=== PATIENT | male | born 1970 | race Hispanic/Latino ===

== ENCOUNTER → 2018-10-07 | Outpatient (CLI) | payer MEDICARE ==
[~2018-10-07] MED LIST: DULO30CA51 PO; GABA600T10 PO; HYDR-4060 PO; LISI1TAB9 PO; METF-446 PO; METH750T3 PO; METO10TA3 PO; ZOLP10TA6 PO
--- NOTE | 2018-10-07 13:30 | NUR ---
MBSS COMPLETE. -S/S OF ASPIRATION. RECOMMEND REGULAR, THIN LIQUID DIET; PILLS WHOLE WITH LIQUIDS. PATIENT INFORMATION: Pt IS A 48 MALE REFERRED FOR AN MBSS SECONDARY TO C/O DIFFICULTY SWALLOWING IN THE AM. Pt AAOX3 AND SERVED THE PRIMARY INFORMANT FOR MEDICAL AND SOCIAL HISTORY. Pt DESCRIBES SWALLOWING DIFFICULTY OCCURRING EARLY IN THE MORNING, WHICH HE ATTRIBUTES TO GASTRIC ISSUES. Pt WAS RECENTLY DIAGNOSED WITH GASTRIC ULCERS AND POLYPS. Pt HAS A PAST MEDICAL HISTORY SIGNIFICANT FOR PTSD, TORN ROTATOR CUFF, HYPERTENSION, GERD, AND LOWER BACK SURGERY (L-SPINE). MBSS INTERPRETATION: SWALLOW FUNCTION AND EFFICIENCY WITHIN FUNCTIONAL LIMITS. ORAL MOTOR STRENGTH, COORDINATION, AND ROM WITHIN FUNCTIONAL LIMITS. LARYNGEAL ELEVATION/EXCURSION STRONG WITH TIMELY PHARYNGEAL RESPONSE. NO OVERT SIGNS OR SYMPTOMS OF ASPIRATION PRESENT DURING MBSS. TRIALS: 1. TSP PUREED: GOOD 2. TSP PUDDING: GOOD 3. TSP MIXED: GOOD 4. COOKIE: GOOD 5. TSP THIN LIQUIDS: GOOD 6. CUP SIP THIN LIQUIDS: GOOD RECOMMENDATIONS: 1. REGULAR TEXTURE, THIN LIQUID DIET; PILLS WHOLE WITH LIQUIDS. 2. COMPENSATORY STRATEGIES (PROPHYLAXIS): *SEATED AT 90 DEGREE ANGLE *REMAIN UPRIGHT 30 MINUTES AFTER MEAL TIMES G-CODES SWALLOWING: [id number] Addendum: 10/07/18 at 1337 by FARHAT [facility] Amended: Links added.
== END | disposition home or self-care (01) ==
LOC: RAH 10:15
PROVIDERS: ATTEND Internal Medicine Gastroenterology
DX: R13.12 Dysphagia, oropharyngeal phase (principal); R63.3 Feeding difficulties
CPT/HCPCS: 74230; 92611

== ENCOUNTER → 2018-11-05 | Outpatient (CLI) | payer MEDICARE | END | disposition home or self-care (01) | LOC: RAH 10:28 | PROVIDERS: ATTEND Internal Medicine Gastroenterology | DX: K30 Functional dyspepsia (principal) | CPT/HCPCS: 78264; A9541 ==

== ENCOUNTER 2019-03-03 11:00 | Observation (INO) | payer MEDICARE ==
[~2019-03-03] VITALS: Ht 180.3 cm; Wt 127.6 kg
[~2019-03-03 11:00] MED LIST changes: -DULO30CA51 PO; +DULO30CA52 PO; -GABA600T10 PO; -HYDR-4060 PO; -LISI1TAB9 PO; -METH750T3 PO; -METO10TA3 PO
[2019-03-03 16:36] VITALS: BP 120/71
[2019-03-03] MEDS ORDERED: GABA600T10 PO (17:50)
[2019-03-03] MEDS ORDERED: LACT10SO PO (17:50)
[2019-03-03] MEDS ORDERED: MIRT30TA6 PO (17:50)
[2019-03-03] MEDS ORDERED: HYDR-3421 PO (17:50)
[2019-03-03] MEDS ORDERED: LISI40TA4 PO (17:50)
[2019-03-03] MEDS ORDERED: NALO4SPR NS (17:50)
[2019-03-03] MEDS ORDERED: CARB15DR OP (17:50)
[2019-03-03] MEDS ORDERED: LEVE10006 PO (17:50)
[2019-03-03] MEDS ORDERED: ROSU10TA28 PO (17:50)
[2019-03-03] MEDS ORDERED: MELA3TAB66 PO (17:50)
[2019-03-03] MEDS ORDERED: FURO20TA4 PO (17:50)
[2019-03-03] MEDS ORDERED: ALPR1TAB7 PO (17:50)
[2019-03-03] MEDS ORDERED: SUCR1TAB2 PO (17:50)
[2019-03-03] MEDS ORDERED: GLIP10TA9 PO (17:50)
[2019-03-03] MEDS ORDERED: LIDO700A30 TP (17:50)
[2019-03-03] MEDS ORDERED: BISA5TAB12 PO (17:50)
[2019-03-03] MEDS ORDERED: HYDR25TA PO (17:50)
[2019-03-03] MEDS ORDERED: ESOM40CA54 PO (17:50)
[2019-03-03] MEDS ORDERED: TRIA15CR48 TP (17:50)
[2019-03-03] MEDS ORDERED: OXYC30TA89 PO (17:50)
[2019-03-04] VITALS (24 sets, daily range): BP systolic 100–156; BP diastolic 44–82
[2019-03-04] MEDS: CEFAZOLIN 3GM /D5W 100ML 100 ML IV SCH ×3 (06:00→21:47)
[2019-03-04] MEDS ORDERED: SODIUM CHLORIDE 0.9% 1000ML 1,000 ML IV ONE (11:27)
[2019-03-04] MEDS ORDERED: CEFAZOLIN SODIUM 1 GM VIAL ONE (11:27)
[2019-03-04] MEDS ORDERED: PROPOFOL 10 MG/ML 20ML VIAL IV ONE (13:45)
[2019-03-04] MEDS ORDERED: DEXAMETHASONE SOD PHOSPHATE 10MG/ML 1ML VIAL ONE (13:45)
[2019-03-04] MEDS ORDERED: MIDAZOLAM HCL 1 MG/ML 2ML VIAL ONE (13:45)
[2019-03-04] MEDS ORDERED: LIDOCAINE PF 2% 5ML ABBOJECT ONE ×2 (13:45→15:15)
[2019-03-04] MEDS ORDERED: ONDANSETRON HCL 4 MG/2 ML VIAL ONE (13:45)
[2019-03-04] MEDS ORDERED: FENTANYL CITRATE PF 50 MCG/1 ML 2ML VIAL ONE ×2 (13:45→14:28)
[2019-03-04] MEDS ORDERED: ROCURONIUM 10MG/1ML SYR 10 MG/ML ML ONE (13:46)
[2019-03-04] MEDS ORDERED: ROPIVACAINE 0.5% 5MG/ML 30ML IJ ONE (13:57)
[2019-03-04] MEDS ORDERED: KETOROLAC TROMETHAMINE 30MG/ML ONE (15:22)
[2019-03-04 15:58] LABS: HEMATOCRIT 35.7 % (42-54)
--- NOTE | 2019-03-04 17:55 | NUR ---
DR. KADIE VILLALOBOS, FOR MEDICAL MANAGEMENT PER DR. SCHUSTER NO ANSWER
[2019-03-04 17:58] LABS: HEMATOCRIT 34.7 % (42-54)
--- NOTE | 2019-03-04 18:11 | NUR ---
DR. ENGLE PAGED AGAIN
[2019-03-04] MEDS ORDERED: HYDROXYZINE HCL 25 MG TABLET PO PRN (18:30)
[2019-03-04] MEDS ORDERED: NON-FORMULARY MEDICATION 1 EACH (Levetiracetam 1,000 MG) PO SCH (18:30)
[2019-03-04] MEDS ORDERED: LIDOCAINE 5% TOPICAL PATCH TP PRN (18:30)
[2019-03-04] MEDS ORDERED: ARTIFICAL TEARS SOL 15 ML OP PRN (18:30)
--- NOTE | 2019-03-04 18:55 | NUR ---
THIS IS THE 4TH TIME I CALL PHARMACY THEY FAILED TO MAKE PAIN MEDICATION AVAILABLE FOR PATIENT
[2019-03-04] MEDS: OXYCODONE HCL 30 MG TABLET PO PRN ×2 (19:09→23:38)
--- NOTE | 2019-03-04 20:00 | NUR ---
'S ORDERS. PER DR. SCHUSTER PT TO GET UP TO CHAIR STARTING AT THIS TIME. PT REFUSING TO GET UP STATED "IS IN TOO MUCH PAIN", ENCOURAGED TO GET UP PER MD ORDERS AND EDUCATED OF IMPORTANCE, PT CONTINUES TO REFUSE. PT EXERCISED R.O.M WITH BLE IN BED, PERFORMED ANKLE DORSIFLEXION.
[2019-03-04] MEDS ORDERED: LEVETIRACETAM 500 MG TABLET PO SCH (21:00)
[2019-03-04] MEDS ORDERED: MELATONIN 6 MG PO PRN (21:00)
[2019-03-04] MEDS ORDERED: ATORVASTATIN CALCIUM 10 MG TABLET PO SCH (21:00)
[2019-03-04] MEDS ORDERED: ZOLPIDEM TARTRATE 5 MG TAB PO SCH (21:00)
[2019-03-04] MEDS ORDERED: MIRTAZAPINE 15 MG TABLET PO SCH (21:00)
[2019-03-04] MEDS: ALPRAZOLAM 1 MG TAB PO SCH (21:45)
[2019-03-04] MEDS: GABAPENTIN 300 MG CAPSULE PO SCH (21:45)
[2019-03-04] MEDS: GLIPIZIDE 5 MG TABLET PO SCH (21:46)
[2019-03-04] MEDS: DULOXETINE HCL 30 MG CAP PO SCH (21:46)
[2019-03-04] MEDS: LACTULOSE 20 GM/30 ML UDCUP PO SCH (21:46)
[2019-03-04] MEDS: SUCRALFATE 1 GM TABLET PO SCH (21:46)
[2019-03-04] MEDS: METFORMIN HCL 500 MG TABLET PO SCH (21:47)
[2019-03-04] MEDS ORDERED: CEFAZOLIN SODIUM 1 GM VIAL IVP SCH (22:00)
[2019-03-04] MEDS ORDERED: LEVETIRACETAM 500 MG TABLET PO ONE (23:34)
--- NOTE | 2019-03-04 23:39 | NUR ---
MEDICATION ADMINISTRATION. PER PHARMACY OK TO OVERRIDE KEPPRA 500MG X2 FOR ADMINISTRATION OF KEPPRA 1GM, DUE TO ANH ON PHARMACY SIDE FOR VERIFYING THAT MEDICATION. KEPPRA 1GM ADMINISTERED AT THIS TIME.
[2019-03-05 00:39] LABS: HEMATOCRIT 34.2 % (42-54)
[2019-03-05] MEDS ORDERED: PHARMACY COMMUNICATION MISC SCH (01:30)
[2019-03-05 03:32] VITALS: BP 137/86
--- NOTE | 2019-03-05 03:50 | NUR ---
PT SITTING UP. PT SITTING UP ON THE EDGE OF THE BED, C/O STATES UNABLE TO STAND UP ON HIS FEET, "THE PAIN IS TOO MUCH". DORSIFLEXION EXERCISE PERFORMED TO ANKLES. PT ASSISTED BACK INTO BED. REFER TO eMAR FOR MEDICATION ADMINISTRATION.
[2019-03-05] MEDS: OXYCODONE HCL 30 MG TABLET PO PRN ×3 (04:08→13:44)
[2019-03-05] MEDS: CEFAZOLIN 3GM /D5W 100ML 100 ML IV SCH ×2 (05:47→15:36)
[2019-03-05] MEDS ORDERED: BISACODYL 10 MG SUPP.RECT RC PRN (06:00)
[2019-03-05] MEDS ORDERED: MAGNESIUM HYDROXIDE 30 ML/UDCUP PO PRN (06:00)
[2019-03-05 06:40] LABS: HEMATOCRIT 37.1 % (42-54)
[2019-03-05] MEDS: PROMETHAZINE HCL 25 MG/ML 1ML AMPULE IM PRN ×2 (06:49→11:44)
[2019-03-05] MEDS: MORPHINE SULFATE 5 MG/ML VIAL IM PRN ×2 (06:50→11:44)
[2019-03-05 08:00] VITALS: BP 152/90
[2019-03-05] MEDS ORDERED: BISACODYL 5 MG TABLET.DR PO SCH (09:00)
[2019-03-05] MEDS ORDERED: TRIAMCINOLONE ACETONIDE 0.1% CREAM 15GM TP SCH (09:00)
[2019-03-05] MEDS ORDERED: PANTOPRAZOLE SODIUM 40 MG TABLET.DR PO SCH (09:00)
[2019-03-05] MEDS ORDERED: FUROSEMIDE 20 MG TABLET PO SCH (09:00)
[2019-03-05] MEDS: SUCRALFATE 1 GM TABLET PO SCH ×2 (09:00→13:27)
[2019-03-05] MEDS ORDERED: NALOXONE HCL 4 MG NASAL PRN (09:00)
[2019-03-05] MEDS ORDERED: LISINOPRIL 40 MG TABLET PO SCH (09:00)
[2019-03-05] MEDS ORDERED: HYDROCHLOROTHIAZIDE 25 MG TABLET PO SCH (09:00)
[2019-03-05] MEDS: ALPRAZOLAM 1 MG TAB PO SCH (10:37)
[2019-03-05] MEDS: LACTULOSE 20 GM/30 ML UDCUP PO SCH (10:38)
[2019-03-05] MEDS: DULOXETINE HCL 30 MG CAP PO SCH (10:39)
[2019-03-05] MEDS: GABAPENTIN 300 MG CAPSULE PO SCH (10:39)
[2019-03-05] MEDS: GLIPIZIDE 5 MG TABLET PO SCH (10:40)
[2019-03-05] MEDS: METFORMIN HCL 500 MG TABLET PO SCH (10:41)
[2019-03-05 11:35] VITALS: BP 143/97
--- NOTE | 2019-03-05 14:15 | NUR ---
Pt was sitting up to the bedside chair after the physical therapy exercises
--- NOTE | 2019-03-05 17:00 | NUR ---
Dressing change performed to left shoulder with Betadine swab, cover with 4x4 and secure with hypafix tape. Pt signed discharge instructions and verbalized understanding of follow up appointments, stated that he has oxycodone tabs at home because Dr Carpio is the one managing his chronic pain
[2019-03-05] MEDS ORDERED: LEVETIRACETAM 500 MG TABLET PO SCH (21:00)
== END 2019-03-05 18:13 | disposition home or self-care (01) ==
LOC: EDSTATUS 11:00 → DAHIP 03-04 10:40 → 4BH 03-04 16:52
DX: M75.102 Unspecified rotator cuff tear or rupture of left shoulder, not specified as traumatic (principal); M75.42 Impingement syndrome of left shoulder; E11.9 Type 2 diabetes mellitus without complications; I10 Essential (primary) hypertension; K21.9 Gastro-esophageal reflux disease without esophagitis; K70.40 Alcoholic hepatic failure without coma; F10.20 Alcohol dependence, uncomplicated; F32.9 Major depressive disorder, single episode, unspecified; Z79.899 Other long term (current) drug therapy
CPT/HCPCS: 23130; 23412; 36415 ×2; 82948 ×4; 85014 ×4; 85018 ×4; 94760; 96365; 96366; 96372; 97039 ×2; 97116 ×2; 97161; A4215; A4221; A4222; A4223; A4600; A4663; A4930 ×3; A5120; A6223; C1713; G0378 ×23; G8978; G8979; G8980; G8981; G8982; G8983; J0690 ×3; J1100; J1885; J2001 ×2; J2250; J2270 ×2; J2405; J2550 ×2; J2704; J2795; J3010 ×2; J7030 ×2

== ENCOUNTER → 2019-08-03 | Outpatient (CLI) | payer MEDICARE ==
[~2019-08-03] MED LIST changes: +ALPR1TAB7 PO; +BISA5TAB12 PO; +CARB15DR OP; +ESOM40CA54 PO; +FURO20TA4 PO; +GABA600T10 PO; +GLIP10TA9 PO; +HYDR-3421 PO; +HYDR25TA PO; +LACT10SO PO; +LEVE10006 PO; +LIDO700A30 TP; +LISI40TA4 PO; +MELA3TAB66 PO; +MIRT30TA6 PO; +NALO4SPR NS; +OXYC30TA89 PO; +ROSU10TA28 PO; +SUCR1TAB2 PO; +TRIA15CR48 TP
== END | disposition home or self-care (01) ==
LOC: SHCH 10:37
PROVIDERS: ATTEND Internal Medicine Cardiovascular Disease
DX: I87.2 Venous insufficiency (chronic) (peripheral) (principal)
CPT/HCPCS: 93971

== ENCOUNTER → 2019-08-30 | Outpatient (CLI) | payer MEDICARE ==
[~2019-08-30] MED LIST changes: +MELA3TAB41 PO; -MELA3TAB66 PO
== END | disposition home or self-care (01) ==
LOC: SHCH 13:17
PROVIDERS: ATTEND Internal Medicine Cardiovascular Disease
DX: I82.812 Embolism and thrombosis of superficial veins of left lower extremity (principal); I87.2 Venous insufficiency (chronic) (peripheral); Z09 Encounter for follow-up examination after completed treatment for conditions other than malignant neoplasm
CPT/HCPCS: 93971

== ENCOUNTER → 2020-04-05 | Outpatient (CLI) | payer MEDICARE ==
[~2020-04-05] MED LIST changes: +OXYC30TA2 PO; -OXYC30TA89 PO
== END | disposition home or self-care (01) ==
LOC: SHCH 13:15
PROVIDERS: ATTEND Internal Medicine Cardiovascular Disease
DX: I87.2 Venous insufficiency (chronic) (peripheral) (principal); K21.9 Gastro-esophageal reflux disease without esophagitis
CPT/HCPCS: 93970

== ENCOUNTER → 2020-04-07 | Outpatient (CLI) | payer MEDICARE ==
[~2020-04-07] MED LIST changes: +REGADENOSON 0.4 MG/5 ML PF SYG IVP SCH
== END | disposition home or self-care (01) ==
LOC: SHCH 07:59
PROVIDERS: ATTEND Internal Medicine Cardiovascular Disease
DX: R07.9 Chest pain, unspecified (principal)
CPT/HCPCS: 78452; 93017; 96374; A9500 ×2; J2785

== ENCOUNTER → 2020-04-19 | Outpatient (CLI) | payer MEDICARE ==
[~2020-04-19] VITALS: Ht 180.3 cm; Wt 132.0 kg
[~2020-04-19] MED LIST changes: +FURO40TA5 PO; +HYDR25SU52 RC; +INSU100I45 SQ; +ISOS30TA6 PO; +METO-391 PO; +METO5TAB2 PO; -REGADENOSON 0.4 MG/5 ML PF SYG IVP SCH; +SODIUM CHLORIDE 0.9% 500ML 500 ML IV SCH
[2020-04-19 09:52] LABS: BASOPHILS % (AUTO) 0.9 % (0.0-5.0); EOSINOPHILS % (AUTO) 3.1 % (0.0-8.0); HEMATOCRIT 39.6 % (42-54); LYMPHOCYTES % (AUTO) 48.2 % (21.0-51.0); MEAN CORPUSCULAR HEMOGLOBIN 27.5 pg (27.0-33.0); MEAN CORPUSCULAR HGB CONC 33.8 g/dL (32.0-36.0); MEAN CORPUSCULAR VOLUME 81.1 fL (79-99); MONOCYTES % (AUTO) 4.2 % (3.0-13.0); NEUTROPHILS % (AUTO) 43.3 % (40.0-77.0); PLATELET COUNT (AUTO) 257 K/uL (130-400); RED BLOOD CELL COUNT(AUTO) 4.88 MIL/uL (4.50-6.20); RED CELL DISTRIBUTION WIDTH 13.6 % (11.0-15.5); WHITE BLOOD COUNT (AUTO) 10.8 K/uL (4.8-10.8)
[2020-04-19 10:01] LABS: APPEARANCE,URINE Clear (CLEAR); BILIRUBIN,URINE Negative (NEGATIVE); COLOR,URINE Yellow (YELLOW); GLUCOSE, URINE (UA) >=1000 mg/dL (NEGATIVE); KETONES,URINE Negative (NEGATIVE); LEUKOCYTE ESTERASE ,URINE Negative (NEGATIVE); NITRATE,URINE Negative (NEGATIVE); OCCULT BLOOD,URINE Negative (NEGATIVE); PH,URINE 5.5 (5.0-8.0); PROTEIN,URINE Negative (NEGATIVE); UROBILINOGEN,URINE 0.2 mg/dL (0.2-1.0)
[2020-04-19 10:05] LABS: POTASSIUM 3.6 mmol/L (3.5-5.1)
[2020-04-19 10:07] LABS: BACTERIA,URINE Rare /HPF (None Seen); INR 1.01 (0.85-1.15); PARTIAL THROMBOPLASTIN TIME 26.2 SEC (26.3-35.5); PROTHROMBIN TIME 10.9 SEC (9.6-11.6); RBC,URINE 0-1 /HPF (0-1); SQUAMOUS EPITHELIAL CELL,UR Rare /HPF (0-2); WBC,URINE 0-1 /HPF (0-1)
[2020-04-21 10:36] VITALS: BP 153/78
== END | disposition home or self-care (01) ==
LOC: DAH 10:00 → EDSTATUS 04-24 08:00
PROVIDERS: ATTEND Internal Medicine Cardiovascular Disease
DX: Z01.810 Encounter for preprocedural cardiovascular examination (principal); I25.119 Atherosclerotic heart disease of native coronary artery with unspecified angina pectoris; Z79.01 Long term (current) use of anticoagulants
CPT/HCPCS: 36415; 71045; 80048; 81001; 85025; 85610; 85730; 93005

== ENCOUNTER 2020-05-04 08:38 | Day surgery (SDC) | payer MEDICARE ==
[2020-05-02 09:59] LABS: BASOPHILS % (AUTO) 0.8 % (0.0-5.0); EOSINOPHILS % (AUTO) 3.3 % (0.0-8.0); HEMATOCRIT 38.8 % (42-54); LYMPHOCYTES % (AUTO) 48.7 % (21.0-51.0); MEAN CORPUSCULAR HEMOGLOBIN 27.4 pg (27.0-33.0); MEAN CORPUSCULAR HGB CONC 34.3 g/dL (32.0-36.0); MONOCYTES % (AUTO) 6.2 % (3.0-13.0); NEUTROPHILS % (AUTO) 40.6 % (40.0-77.0); PLATELET COUNT (AUTO) 281 K/uL (130-400); RED BLOOD CELL COUNT(AUTO) 4.85 MIL/uL (4.50-6.20); RED CELL DISTRIBUTION WIDTH 13.6 % (11.0-15.5); WHITE BLOOD COUNT (AUTO) 11.4 K/uL (4.8-10.8)
[2020-05-02 10:01] LABS: APPEARANCE,URINE Clear (CLEAR); BILIRUBIN,URINE Negative (NEGATIVE); COLOR,URINE Yellow (YELLOW); GLUCOSE, URINE (UA) 250 mg/dL (NEGATIVE); KETONES,URINE Negative (NEGATIVE); LEUKOCYTE ESTERASE ,URINE Negative (NEGATIVE); NITRATE,URINE Negative (NEGATIVE); OCCULT BLOOD,URINE Negative (NEGATIVE); PH,URINE 5.5 (5.0-8.0); PROTEIN,URINE Negative (NEGATIVE)
[2020-05-02 10:08] LABS: BACTERIA,URINE Rare /HPF (None Seen); RBC,URINE 0-1 /HPF (0-1); SQUAMOUS EPITHELIAL CELL,UR Rare /HPF (0-2); WBC,URINE 0-1 /HPF (0-1)
[2020-05-02 10:10] LABS: POTASSIUM 3.5 mmol/L (3.5-5.1)
[2020-05-02 10:13] LABS: INR 1.04 (0.85-1.15); PARTIAL THROMBOPLASTIN TIME 26.5 SEC (26.3-35.5); PROTHROMBIN TIME 11.2 SEC (9.6-11.6)
--- NOTE | 2020-05-03 12:17 | NUR ---
reported to Adelso sullivan wbc 11.4, no new orders okay to proceed.
[~2020-05-04] VITALS: Ht 180.3 cm; Wt 132.6 kg
[2020-05-04] VITALS (10 sets, daily range): BP systolic 86–163; BP diastolic 43–76
[~2020-05-04 08:38] MED LIST changes: -CARB15DR OP; -FURO20TA4 PO; -HYDR-3421 PO; -LIDO700A30 TP; -NALO4SPR NS; -SODIUM CHLORIDE 0.9% 500ML 500 ML IV SCH
--- NOTE | 2020-05-04 08:45 | NUR ---
Day pt arrival Arrival to floor at this time, states no distress noted ambulating with a cane.
[2020-05-04] MEDS ORDERED: SODIUM CHLORIDE 0.9% 1000ML 1,000 ML IV ONE (09:24)
[2020-05-04] MEDS ORDERED: IOHEXOL-350 75 ML VIAL IV ONE (10:07)
[2020-05-04] MEDS ORDERED: NITROGLYCERIN 2 MG/VIAL VIAL IV ONE (10:07)
[2020-05-04] MEDS ORDERED: LIDOCAINE HCL 2% 20ML ONE (10:07)
[2020-05-04] MEDS ORDERED: BIVALIRUDIN 250 MG/VIAL IV ONE (10:07)
[2020-05-04] MEDS ORDERED: IOHEXOL-350 50ML VIAL IV ONE (10:07)
[2020-05-04] MEDS ORDERED: MIDAZOLAM HCL 1 MG/ML 2ML VIAL ONE (10:30)
[2020-05-04] MEDS ORDERED: FENTANYL CITRATE PF 50 MCG/1 ML 2ML VIAL ONE (10:30)
--- NOTE | 2020-05-04 10:35 | NUR ---
receiver/laborer pt taken to receiver/laborer at this time
[2020-05-04] MEDS ORDERED: METOPROLOL TARTRATE 1 MG/ML 5ML VIAL IV PRN (11:15)
[2020-05-04] MEDS ORDERED: GLUCAGON 1MG KIT 1 MG ML IM PRN (11:15)
[2020-05-04] MEDS ORDERED: DEXTROSE 50%-WATER 50 ML DISP.SYRIN IV PRN (11:15)
[2020-05-04] MEDS ORDERED: NITROGLYCERIN 0.4 MG SL TAB SL PRN (11:15)
[2020-05-04] MEDS ORDERED: INSULIN HUMULIN R 100 UNIT/ML 3ML SQ SCH (11:30)
--- NOTE | 2020-05-04 11:35 | NUR ---
LAP HAND TOOL ARRIVAL PT IN BED IN NO APPARENT DISTRESS, NOTED ASLEEP BUT AWAKENS WHEN CALLED. DRESSING IS CDI TO RIGHT GROIN
--- NOTE | 2020-05-04 16:00 | NUR ---
DAY PT DC PT DC TO HOME ON WHEELCHAIR , PT DENIES DISCOMFORT.
== END 2020-05-04 16:00 | disposition home or self-care (01) ==
LOC: DAH 08:38
PROVIDERS: ATTEND Internal Medicine Cardiovascular Disease
DX: I25.119 Atherosclerotic heart disease of native coronary artery with unspecified angina pectoris (principal); I11.0 Hypertensive heart disease with heart failure; I50.32 Chronic diastolic (congestive) heart failure; E78.5 Hyperlipidemia, unspecified; E11.51 Type 2 diabetes mellitus with diabetic peripheral angiopathy without gangrene; F41.9 Anxiety disorder, unspecified; F32.9 Major depressive disorder, single episode, unspecified; E66.01 Morbid (severe) obesity due to excess calories; G40.909 Epilepsy, unspecified, not intractable, without status epilepticus; I87.2 Venous insufficiency (chronic) (peripheral); Z98.890 Other specified postprocedural states; Z79.899 Other long term (current) drug therapy; Z79.84 Long term (current) use of oral hypoglycemic drugs; Z79.01 Long term (current) use of anticoagulants; Z88.1 Allergy status to other antibiotic agents; Z88.8 Allergy status to other drugs, medicaments and biological substances; Z68.41 Body mass index [BMI] 40.0-44.9, adult
CPT/HCPCS: 36415; 71045; 80048; 81001; 82948 ×2; 85025; 85610; 85730; 93005; 93458; A4215; A4216; A4221; A4222; A4223 ×3; A4606; A4663; C1760; C1894 ×2; J1644; J2250; J3010; J3490 ×2; J7030; Q9967 ×2; 99156; 99157; J0583

== ENCOUNTER 2020-11-18 15:12 | Emergency (ER) | payer OTHER, MEDICARE ==
[~2020-11-18 15:12] MED LIST changes: -ISOS30TA6 PO; +ISOS30TA92 PO; -LACT10SO PO; +LACT10SO5 PO; -LISI40TA4 PO; +LISI40TA9 PO
[2020-11-18 15:48] LABS: BASOPHILS % (AUTO) 0.3 % (0.0-5.0); HEMATOCRIT 44.8 % (42-54); LYMPHOCYTES % (AUTO) 23.2 % (21.0-51.0); MEAN CORPUSCULAR HEMOGLOBIN 27.7 pg (27.0-33.0); MEAN CORPUSCULAR HGB CONC 33.9 g/dL (32.0-36.0); MEAN CORPUSCULAR VOLUME 81.8 fL (79-99); MONOCYTES % (AUTO) 3.8 % (3.0-13.0); NEUTROPHILS % (AUTO) 72.3 % (40.0-77.0); PLATELET COUNT (AUTO) 312 K/uL (130-400); RED BLOOD CELL COUNT(AUTO) 5.48 MIL/uL (4.50-6.20); RED CELL DISTRIBUTION WIDTH 13.3 % (11.0-15.5); WHITE BLOOD COUNT (AUTO) 14.9 K/uL (4.8-10.8)
[2020-11-18 15:53] LABS: INR 1.12 (0.85-1.15); PROTHROMBIN TIME 12.1 SEC (9.6-11.6)
[2020-11-18 15:54] LABS: PARTIAL THROMBOPLASTIN TIME 26.2 SEC (26.3-35.5)
[2020-11-18 16:02] LABS: ALBUMIN 4.1 g/dL (3.5-5.0); BILIRUBIN,TOTAL 0.6 mg/dL (0.2-1.0); TOTAL PROTEIN, SERUM 9.5 g/dL (6.0-8.3)
[2020-11-18] MEDS ORDERED: ASPIRIN 325 MG TABLET ONE (16:16)
[2020-11-18] MEDS ORDERED: HYDROCODONE/ACETAMINOPHEN 5/325 MG TAB ONE (16:17)
[2020-11-18] MEDS ORDERED: ONDANSETRON HCL 4 MG/2 ML VIAL ONE ×2 (16:36→17:50)
[2020-11-18] MEDS ORDERED: SODIUM CHLORIDE 0.9% 500ML 500 ML IV ONE (16:38)
[2020-11-18] MEDS ORDERED: FENTANYL 25 MCG/HR PATCH TD ONE (17:39)
== END 2020-11-18 18:58 | disposition home or self-care (01) ==
LOC: EDH 15:12
DX: R07.89 Other chest pain (principal); F11.23 Opioid dependence with withdrawal; R11.0 Nausea; R06.02 Shortness of breath; E11.9 Type 2 diabetes mellitus without complications; I10 Essential (primary) hypertension; K21.9 Gastro-esophageal reflux disease without esophagitis; Z88.1 Allergy status to other antibiotic agents; Z87.891 Personal history of nicotine dependence; Z98.890 Other specified postprocedural states
CPT/HCPCS: 36415; 71046; 80053; 82550; 83690; 83880; 84484 ×2; 85025; 85610; 85730; 93005 ×2; 96361; 96374; 96376; 99285; J2405 ×2; J7040

== ENCOUNTER → 2021-01-11 | Outpatient (CLI) | payer MEDICARE ==
[~2021-01-11] MED LIST changes: +IOHEXOL 350 MG/ML 100ML INFUS..BTL IV ONE; +MIRT-93 PO; -MIRT30TA6 PO
== END | disposition home or self-care (01) ==
LOC: RAH 10:39
PROVIDERS: ATTEND Internal Medicine Cardiovascular Disease
DX: I26.99 Other pulmonary embolism without acute cor pulmonale (principal); R06.02 Shortness of breath
CPT/HCPCS: 71275; Q9967

== ENCOUNTER → 2022-11-07 | Outpatient (CLI) | payer MEDICARE, OTHER ==
[~2022-11-07] MED LIST changes: +BISA-151 PO; -BISA5TAB12 PO; -IOHEXOL 350 MG/ML 100ML INFUS..BTL IV ONE
== END | disposition home or self-care (01) ==
LOC: RAH 12:39
PROVIDERS: ATTEND Internal Medicine Gastroenterology
DX: K21.9 Gastro-esophageal reflux disease without esophagitis (principal); R13.10 Dysphagia, unspecified
CPT/HCPCS: 74230; 92611

== ENCOUNTER → 2022-12-05 | Outpatient (CLI) | payer MEDICARE ==
[2022-12-05 12:11] LABS: BASOPHILS % (AUTO) 0.8 % (0.0-5.0); HEMATOCRIT 37.2 % (42-54); LYMPHOCYTES % (AUTO) 44.5 % (21.0-51.0); MEAN CORPUSCULAR HEMOGLOBIN 28.7 pg (27.0-33.0); MEAN CORPUSCULAR HGB CONC 33.9 g/dL (32.0-36.0); MEAN CORPUSCULAR VOLUME 84.7 fL (79-99); NEUTROPHILS % (AUTO) 45.2 % (40.0-77.0); PLATELET COUNT (AUTO) 272 K/uL (130-400); RED BLOOD CELL COUNT(AUTO) 4.39 MIL/uL (4.50-6.20); RED CELL DISTRIBUTION WIDTH 13.3 % (11.0-15.5); WHITE BLOOD COUNT (AUTO) 9.2 K/uL (4.8-10.8)
[2022-12-05 12:18] LABS: CREATININE 0.8 mg/dL (0.5-1.5); PROTHROMBIN TIME 10.9 SEC (9.6-11.6)
[2022-12-05 12:19] LABS: PARTIAL THROMBOPLASTIN TIME 28.5 SEC (26.3-35.5)
== END | disposition home or self-care (01) ==
LOC: LAB 08:17
PROVIDERS: ATTEND Internal Medicine Cardiovascular Disease
DX: R06.02 Shortness of breath (principal)
CPT/HCPCS: 36415; 80048; 85025; 85610; 85730

== ENCOUNTER → 2023-10-09 | Outpatient (CLI) | payer OTHER | END | disposition home or self-care (01) | LOC: RAH 08:25 | PROVIDERS: ATTEND Internal Medicine Gastroenterology | DX: R13.10 Dysphagia, unspecified (principal); K21.9 Gastro-esophageal reflux disease without esophagitis | CPT/HCPCS: 74240 ==